=== PATIENT | male | born 1970 | race Caucasian/White ===

== ENCOUNTER → 2018-03-26 10:27 | Outpatient (CLI) | payer OTHER, SELFPAY ==
--- NOTE | 2018-03-26 | DI.MRI.S_ITS ---
PROCEDURE: MR CERVICAL SPINE WO CON INDICATIONS: Neck pain. Numbness in upper limbs TECHNIQUE: Noncontrast sagittal T1 spin echo and T2 fast spin echo, sagittal STIR, foraminal oblique sagittal T2 fast spin echo, and axial gradient echo or T2 fast spin echo through the cervical spine. COMPARISON: None. FINDINGS: Image quality: Excellent. Alignment and Curvature: Straightening of the normal cervical lordosis.. Bone Marrow: Marrow demonstrates normal overall signal. Spinal Cord: Visualized spinal cord has normal size and signal. No cerebellar tonsillar herniation. Paraspinous Soft Tissues: No paravertebral masses. Prevertebral soft tissues are normal in thickness. C2-C3: Normal appearance. C3-C4: Bilateral uncovertebral arthropathy and posterior intervening disc osteophyte complex, and mild bilateral facet disease. No definite canal stenosis. No foraminal narrowing. C4-C5: Bilateral uncovertebral arthropathy and posterior intervening disc osteophyte complex, which appears mild. No definite canal stenosis. Moderate right and no definite left foraminal narrowing. C5-C6: Bilateral uncovertebral arthropathy and posterior intervening disc osteophyte complex, and bilateral facet disease. Moderate right and mild left foraminal narrowing. C6-C7: Bilateral uncovertebral arthropathy and posterior intervening disc osteophyte complex, and bilateral facet disease. Minimal central canal narrowing. Severe right foraminal stenosis. Mild left foraminal narrowing. C7-T1: Normal appearance. IMPRESSION: Straightening of the normal cervical lordosis and multilevel cervical disc degeneration and facet arthropathy. Severe right C6-C7 foraminal stenosis. Moderate right C4-C5 and C5-C6 foraminal narrowing. Mild left C5-6 foraminal stenosis. Dictated by: Adonay Ayala M.D. on 03/26/2018 at 12:03 Approved by: Adonay Ayala M.D. on 03/26/2018 at 12:11
== END ==
PROVIDERS: PCP Physician Assistant; Visit Provider General Practice
DX: M50.31 Other cervical disc degeneration, high cervical region (principal); M47.812 Spondylosis without myelopathy or radiculopathy, cervical region; M48.02 Spinal stenosis, cervical region; M54.2 Cervicalgia; R20.0 Anesthesia of skin
CPT/HCPCS: 72141

== ENCOUNTER → 2018-06-05 18:39 | Outpatient (CLI) | payer OTHER, SELFPAY ==
--- NOTE | 2018-06-05 18:43 | DI.MRI.S_ITS ---
PROCEDURE: MR LUMBAR SPINE WO CON INDICATIONS: LUMBAR RADICULOPATHY TECHNIQUE: Noncontrast sagittal T1 spin echo and T2 fast echo, sagittal STIR, axial T1 and T2 fast spin echo through the lumbar spine. In cases with scoliosis, additional coronal T2 fast spin echo may be performed. COMPARISON: [facility], MR, MR LUMBAR SPINE WITHOUT CONTRAST, 05/05/2015, 10:19. [facility], CR, XR LUMBAR SPINE WITH OLBIQUES PLUS FLEXION EXTENSION, 04/02/2018, 11:03. FINDINGS: Image quality: Excellent. Alignment and Curvature: 5 lumbar type vertebral bodies are present by plain film. There is normal bony alignment. Bone Marrow: Marrow is of normal overall signal. No acute vertebral body compression fractures. Spinal Cord: Conus medullaris terminates at the L1-L2 disc space level. Visualized cord demonstrates normal signal and size. Paraspinous Soft Tissues: No paravertebral masses. L1-L2: Mild facet hypertrophy and ligamentum hypertrophy bilaterally. Mild epidural lipomatosis. No significant canal, nor foraminal stenosis. No change. L2-L3: Mild facet and ligamentum flavum hypertrophy. Mild epidural lipomatosis. Mild canal stenosis. Mild bilateral foraminal stenosis. No change. L3-L4: Mild facet hypertrophy and ligamentum hypertrophy. Mild epidural lipomatosis. Mild canal stenosis. Mild bilateral foraminal stenosis. No change. L4-L5: Mild diffuse disc bulge. Mild bilateral facet and ligamentum flavum hypertrophy. Mild canal stenosis. Mild bilateral foraminal stenosis. No change. L5-S1: Moderate disc loss and desiccation. Mild diffuse disc bulge with superimposed new/increased left paracentral disc extrusion. Mild bilateral facet and ligamentum flavum hypertrophy. There is mild canal stenosis and mild bilateral foraminal stenosis, which is increased. There is significantly increased impingement upon the left S1 nerve root within the lateral recess. IMPRESSION: 1. Multilevel degenerative disc and facet disease, as well as ligamentum flavum hypertrophy and epidural lipomatosis. 2. Mild multilevel canal and foraminal stenoses as described above. 3. Left S1 nerve root impingement at the L5-S1 disc space level as described above. Recommend correlation with clinical symptoms to ascertain relevance of this finding. Dictated by: Chani Gonzales M.D. on 06/08/2018 at 14:32 Approved by: Chani Gonzales M.D. on 06/08/2018 at 14:35
== END ==
PROVIDERS: PCP Physician Assistant; Visit Provider Physical Medicine & Rehabilitation
DX: M51.16 Intervertebral disc disorders with radiculopathy, lumbar region (principal); M51.17 Intervertebral disc disorders with radiculopathy, lumbosacral region; M48.061 Spinal stenosis, lumbar region without neurogenic claudication; M48.07 Spinal stenosis, lumbosacral region; E88.2 Lipomatosis, not elsewhere classified
CPT/HCPCS: 72148

== ENCOUNTER 2018-08-03 12:44 | Day surgery (SDC) | payer OTHER, SELFPAY ==
[2018-07-28 14:32] VITALS: BMI 39.3
[2018-08-03] VITALS (10 sets, daily range): BP systolic 113–135; BP diastolic 62–78; PULSE 67–97; RESP 10–16; TEMP 36.2–36.8; O2SAT 94–100; BMI 34.4
[2018-08-03] MEDS: LACTATED RINGERS 1,000 ML 42 ML IV (13:10)
--- NOTE | 2018-08-03 13:28 | SUR.PREOP ---
PT REPORTS HAS CHRONIC NUMBNESS AND TINGLING IN LEFT LEG
--- NOTE | 2018-08-03 14:00 | PM.PREOP ---
Pre-operative Note Interval Note History & Physical reviewed/Exam performed by Physician: Yes Changes to H&P: No
[2018-08-03] MEDS: CEFAZOLIN 2 GM/100 ML FROZ.PIGGY IV (14:27)
--- NOTE | 2018-08-03 14:58 | SUR.OPER ---
Prone on spine table, head in foam head support, padded chest and pelvic supports, gel pad at knees, lower legs supported by pillows; nipples, genitalia and toes free of pressure, arms secured on foam padded arm boards at <90 degrees abduction. Tape over blanket at thigh secured to table.
[2018-08-03] MEDS: BUPIVACAINE 0.25% W/ EPI VIAL 30 ML INJ (15:05)
[2018-08-03] MEDS: methylPREDNISolone acet DEPO 40 MG/ML VIAL IM (15:06)
--- NOTE | 2018-08-03 15:13 | DI.RAD.S_ITS ---
PROCEDURE: XR LUMBAR SPINE 2-3V INDICATIONS: L5-S1 MICRODISECTOMY TECHNIQUE: 2 intraoperative fluoroscopic views of the lumbar spine were acquired. COMPARISON: None. FINDINGS: Bones: Intraoperative fluoroscopic views of the lumbar spine demonstrate localization at L5-S1. IMPRESSION: Intraoperative fluoroscopic localization of L5-S1. Dictated by: Meagan Foley M.D. on 08/03/2018 at 15:52 Approved by: Meagan Foley M.D. on 08/03/2018 at 15:52
--- NOTE | 2018-08-03 15:48 | P.OP_ITS ---
Operative Date/Time/Diagnoses Date of procedure: 08/03/18 Time of procedure: 14:45 Pre-op diagnosis: 1. L5-S1 lumbar disc herniation 2. Lumbar spinal stenosis L5-S1 Post-op diagnosis: same Procedure & Clinicians Procedure: 1. L5-S1 left microdiscectomy 2. Utilization of microsurgical technique and operating microscope Same procedure as scheduled: Yes Indications: Patient has been having chronic back pain and worsening lumbar radiculopathy. Patient failed multiple conservative management with worsening pain weakness and numbness in her lower extremity. Patient has been having difficulty performing activity of daily living. After discussing risks benefits of treatment options, patient elected proceed with surgery. Surgeon: Sola Gill Weatherstrip Machine Operator: Shania Browne Click Yes if Unassisted: No Anesthesia Type: General Operative Notes Closure Type: primary Specimen(s): none sent Estimated Blood Loss (mL): 10 Blood products transfused: none Procedure in detail: Patient was seen in the preoperative area. Risks and benefits of the surgery was discussed with the patient. Informed consent was obtained from the patient and placed in the chart. Surgical site was marked. Patient was taken to the operative room. General anesthesia was administered. Prophylactic antibiotic was given to the patient less than 30 min before the incision was made. Patient was placed into a prone position on the Herbert table. Patient's back was then prepped and draped in the sterile fashion. Time- out was performed at this time. Using AP and lateral C-arm imaging the interval between L5-S1 was identified and marked on patient's back. A 1 inch incision 1 in from midline was made on the left side. The fascia was incised in line with skin incision. Globus MARS retractors was placed inside the incision and docked onto the L5 lamina. Using microsurgical technique and operating microscope, a L5 laminotomy was performed using a Kerrison rongeur. Liagamentum flavum was resected at the site of the laminotomy. The disc space at L5-S1 was identified. Microdiscectomy was performed by incising the annulus with #11 blade. Microcurettes and pituitary was used to removed herniated disc fragments of disc from the epidural space. The disc fragment was found to be partially calcified indicating a chronic portion to the herniated disc. There is also a new herniation was soft and extruded immediately after the annulus was incised. Both the new and calcified older portion of the piece herniation was removed by using a Kerrison rongeur and pituitary. After the microdiskectomy was completed, the area medial lateral superior and inferior to the area of the microdiskectomy was inspected and explored using a micro curette. No other impinging structure was identified. The wound was then irrigated with sterile normal saline. 40 mg Depo-Medrol was placed into the epidural space. The deep fascia was closed with 1-0 Vicryl. The subcutaneous tissue was closed with 2-0 Vicryl. The skin was closed with 4-0 Monocryl. Patient tolerated the procedure well. There were no complications. Patient was transferred recovery room in stable condition. Complications: none Condition: stable Disposition: same day surgery Plan for aftercare: Discharge home
[2018-08-03] MEDS: fentaNYL 100 MCG/2 ML INJ 50 MCG IV ×2 (16:13→16:27)
[2018-08-03] MEDS: OXYCODONE/ACETAMINOPHEN 5/325 TABLET 1 TAB PO (16:19)
--- NOTE | 2018-08-03 16:22 | SUR.PHASEI ---
equal and strong bilateral leg strengths. sensation normal for patient, feet pink and warm
== END 2018-08-03 17:22 | disposition home or self-care (01) ==
PROVIDERS: PCP Physician Assistant; Visit Provider Orthopaedic Surgery Orthopaedic Surgery of the Spine
PROC: (CPT 63030; principal; 2018-08-03 14:45)
DX: M51.16 Intervertebral disc disorders with radiculopathy, lumbar region (principal); I10 Essential (primary) hypertension; F17.210 Nicotine dependence, cigarettes, uncomplicated
CPT/HCPCS: 63030; 72100; 76000; J0690; J1030; J2250; J2405; J2704; J3010

== ENCOUNTER 2018-08-22 18:41 | Emergency (ER) | payer OTHER, SELFPAY ==
[2018-08-22 19:09] VITALS: BP 130/80; PULSE 119; RESP 22; TEMP 38.9; O2SAT 98; BMI 34.4
--- NOTE | 2018-08-22 19:17 | ED.FEVER ---
HPI - Fever <Alexandra Echols PA-C - Last Filed: 08/22/18 21:51> General Chief Complaint: Fever Stated Complaint: FEVER Time Seen by Provider: 08/22/18 19:08 Source: patient Mode of arrival: ambulatory Limitations: no limitations History of Present Illness HPI Narrative: This 48-year-old male comes to ED secondary to fever, generalized weakness, fatigue, body aches started yesterday. He also has had some dry cough with this. He denies sore throat or earache, states he has mild runny nose with clear drainage. He denies shortness of breath or chest pain. He has not had any GI symptoms, normal BM yesterday. He has not had any new rash. No specific exposures known. He has not had flu vaccine this season but up-to-date on other vaccines. Related Data Home Medications Medication Instructions Recorded Confirmed hydrochlorothiazide 12.5 mg PO DAILY 07/28/18 08/03/18 telmisartan [Micardis] 40 mg PO DAILY 07/28/18 08/03/18 Previous Rx's Medication Instructions Recorded oxycodone-acetaminophen [Percocet] 1 tab PO Q4-6H PRN #30 tab 08/03/18 oseltamivir [Tamiflu] 75 mg PO BID 5 Days #9 cap 08/22/18 Allergies Allergy/AdvReac Type Severity Reaction Status Date / Time No Known Drug Allergies Allergy Verified 08/22/18 19:13 Review of Systems <Alexandra Echols PA-C - Last Filed: 08/22/18 21:51> Review of Systems ROS Unobtainable: All systems reviewed & are unremarkable except as noted in HPI and below PFSH <Alexandra Echols PA-C - Last Filed: 08/22/18 21:51> Medical History DJD (degenerative joint disease) (Chronic) Hypertension (Chronic) Spinal stenosis (Chronic) Surgical History H/O microdiscectomy (Resolved) Hx of tonsillectomy (Resolved) S/P epidural steroid injection (Resolved) Social History household members: spouse and children Smoking Status: Former smoker Social History household members: spouse and children Smoking Status: Former smoker Exam <LETICIA Cortes Last Filed: 08/22/18 21:51> Narrative Exam Narrative: GENERAL APPEARANCE: Patient sitting comfortably, in no distress. HEAD: No sinus TTP. EYES: PERRL, EOMI. EARS: Normal auditory canals, TMS intact with normal light reflexes. ORAL CAVITY: Normal oropharynx. THROAT: Clear. NECK/THYROID: Neck supple, full range of motion, no cervical lymphadenopathy. LUNGS: Clear to auscultation bilaterally, Occasional hoarse cough on exam. HEART: RRR without murmur, nl S1, S2, no S3 or S4. DERMATOLOGIC: No exanthem Initial Vital Signs Initial Vital Signs: Vital Signs Temperature 102.0 F H 08/22/18 19:09 Pulse Rate 119 H 08/22/18 19:09 Respiratory Rate 22 08/22/18 19:09 Blood Pressure 130/80 08/22/18 19:09 Pulse Oximetry 98 08/22/18 19:09 <Fermín Schmitt DO - Last Filed: 08/23/18 03:34> Initial Vital Signs Initial Vital Signs: Vital Signs Temperature 102.0 F H 08/22/18 19:09 Pulse Rate 119 H 08/22/18 19:09 Respiratory Rate 22 08/22/18 19:09 Blood Pressure 130/80 08/22/18 19:09 Pulse Oximetry 98 08/22/18 19:09 Course <Alexandra Echols PA-C - Last Filed: 08/22/18 21:51> Orders Ordered: ED Orders 08/22/18 20:00 Influenza A and B by PCR Rapid Stat Discontinued Medications Ibuprofen (Advil) 800 mg PO NOW ONE Stop: 08/22/18 19:17 Last Admin: 08/22/18 19:34 Dose: 800 mg Oseltamivir Phosphate (Tamiflu) 75 mg PO NOW ONE Stop: 08/22/18 20:54 Last Admin: 08/22/18 21:14 Dose: 75 mg Vital Signs - 8 hr 08/22/18 21:19 Temperature 100.8 F H Pulse Rate 109 H Respiratory Rate 18 Pulse Oximetry 95 <Fermín Schmitt DO - Last Filed: 08/23/18 03:34> Orders Ordered: ED Orders 08/22/18 20:00 Influenza A and B by PCR Rapid Stat Discontinued Medications Ibuprofen (Advil) 800 mg PO NOW ONE Stop: 08/22/18 19:17 Last Admin: 08/22/18 19:34 Dose: 800 mg Oseltamivir Phosphate (Tamiflu) 75 mg PO NOW ONE Stop: 08/22/18 20:54 Last Admin: 08/22/18 21:14 Dose: 75 mg Vital Signs - 8 hr 08/22/18 21:19 Temperature 100.8 F H Pulse Rate 109 H Respiratory Rate 18 Pulse Oximetry 95 MDM - Fever <Alexandra Echols PA-C - Last Filed: 08/22/18 21:51> Lab Data Lab Results 08/22/18 Range/Units 20:00 Influenza A & B (PCR) Positive, type a A (Negative) <Fermín Schmitt DO - Last Filed: 08/23/18 03:34> Lab Data Lab Results 08/22/18 Range/Units 20:00 Influenza A & B (PCR) Positive, type a A (Negative) Discharge Plan Departure Patient Disposition: Home Clinical Impression: Influenza Discharge Date/Time: 08/22/18 21:20 Interventions: ED Discharge Assessment Last Done: 08/22/18 21:19 Instructions: DI for Influenza -- Adult Activity Restrictions/Additional Instructions: please return as we talked about if you have any acutely worsening symptoms, i.e. high fever not responding to nagv-aqh-afoflsb medicines, acute respiratory difficulty etc. Otherwise, please rest at home. Take 800 mg (for pivt-ush-lidyjsb tablets) of ibuprofen every 8 hr to help with fever and aches. You can also add Tylenol to that every 4-6 hours in between as needed. You have been given the 1st dose of Tamiflu this evening. Please picker and sorter load and unload the rest of your prescription 1st thing tomorrow when the pharmacy opens and continue taking it for a total of 10 doses. See your PCP if you are not starting to feel better in the next week Prescriptions: New oseltamivir [Tamiflu] 75 mg capsule 75 mg PO BID 5 Days Qty: 9 RF: 0 No Action telmisartan [Micardis] 40 mg Tablet 40 mg PO DAILY RF: 0 hydrochlorothiazide 12.5 mg Tablet 12.5 mg PO DAILY RF: 0 oxycodone-acetaminophen [Percocet] 5-325 mg tablet 1 tab PO Q4-6H PRN (Reason: pain) Qty: 30 RF: 0 Referrals: John Seals PA-C [Primary Care Provider] - <Fermín Schmitt DO - Last Filed: 08/23/18 03:34> Cosign ED Attending Cosignature Attestation: I was immediately available in the department for consultation. Documentation has been reviewed. I agree with assessment and plan.
--- NOTE | 2018-08-22 19:26 | ED_ITS ---
HPI - Fever <Alexandra Echols PA-C - Last Filed: 08/22/18 21:51> General Chief Complaint: Fever Stated Complaint: FEVER Time Seen by Provider: 08/22/18 19:08 Source: patient Mode of arrival: ambulatory Limitations: no limitations History of Present Illness HPI Narrative: This 48-year-old male comes to ED secondary to fever, generalized weakness, fatigue, body aches started yesterday. He also has had some dry cough with this. He denies sore throat or earache, states he has mild runny nose with clear drainage. He denies shortness of breath or chest pain. He has not had any GI symptoms, normal BM yesterday. He has not had any new rash. No specific exposures known. He has not had flu vaccine this season but up-to-date on other vaccines. Related Data Home Medications Medication Instructions Recorded Confirmed hydrochlorothiazide 12.5 mg PO DAILY 07/28/18 08/03/18 telmisartan [Micardis] 40 mg PO DAILY 07/28/18 08/03/18 Previous Rx's Medication Instructions Recorded oxycodone-acetaminophen [Percocet] 1 tab PO Q4-6H PRN #30 tab 08/03/18 oseltamivir [Tamiflu] 75 mg PO BID 5 Days #9 cap 08/22/18 Allergies Allergy/AdvReac Type Severity Reaction Status Date / Time No Known Drug Allergies Allergy Verified 08/22/18 19:13 Review of Systems <Alexandra Echols PA-C - Last Filed: 08/22/18 21:51> Review of Systems ROS Unobtainable: All systems reviewed & are unremarkable except as noted in HPI and below PFSH <Alexandra Echols PA-C - Last Filed: 08/22/18 21:51> Medical History DJD (degenerative joint disease) (Chronic) Hypertension (Chronic) Spinal stenosis (Chronic) Surgical History H/O microdiscectomy (Resolved) Hx of tonsillectomy (Resolved) S/P epidural steroid injection (Resolved) Social History household members: spouse and children Smoking Status: Former smoker Social History household members: spouse and children Smoking Status: Former smoker Exam <LETICIA Cortes Last Filed: 08/22/18 21:51> Narrative Exam Narrative: GENERAL APPEARANCE: Patient sitting comfortably, in no distress. HEAD: No sinus TTP. EYES: PERRL, EOMI. EARS: Normal auditory canals, TMS intact with normal light reflexes. ORAL CAVITY: Normal oropharynx. THROAT: Clear. NECK/THYROID: Neck supple, full range of motion, no cervical lymphadenopathy. LUNGS: Clear to auscultation bilaterally, Occasional hoarse cough on exam. HEART: RRR without murmur, nl S1, S2, no S3 or S4. DERMATOLOGIC: No exanthem Initial Vital Signs Initial Vital Signs: Vital Signs Temperature 102.0 F H 08/22/18 19:09 Pulse Rate 119 H 08/22/18 19:09 Respiratory Rate 22 08/22/18 19:09 Blood Pressure 130/80 08/22/18 19:09 Pulse Oximetry 98 08/22/18 19:09 <Fermín Schmitt DO - Last Filed: 08/23/18 03:34> Initial Vital Signs Initial Vital Signs: Vital Signs Temperature 102.0 F H 08/22/18 19:09 Pulse Rate 119 H 08/22/18 19:09 Respiratory Rate 22 08/22/18 19:09 Blood Pressure 130/80 08/22/18 19:09 Pulse Oximetry 98 08/22/18 19:09 Course <Alexandra Echols PA-C - Last Filed: 08/22/18 21:51> Orders Ordered: ED Orders 08/22/18 20:00 Influenza A and B by PCR Rapid Stat Discontinued Medications Ibuprofen (Advil) 800 mg PO NOW ONE Stop: 08/22/18 19:17 Last Admin: 08/22/18 19:34 Dose: 800 mg Oseltamivir Phosphate (Tamiflu) 75 mg PO NOW ONE Stop: 08/22/18 20:54 Last Admin: 08/22/18 21:14 Dose: 75 mg Vital Signs - 8 hr 08/22/18 21:19 Temperature 100.8 F H Pulse Rate 109 H Respiratory Rate 18 Pulse Oximetry 95 <Fermín Schmitt DO - Last Filed: 08/23/18 03:34> Orders Ordered: ED Orders 08/22/18 20:00 Influenza A and B by PCR Rapid Stat Discontinued Medications Ibuprofen (Advil) 800 mg PO NOW ONE Stop: 08/22/18 19:17 Last Admin: 08/22/18 19:34 Dose: 800 mg Oseltamivir Phosphate (Tamiflu) 75 mg PO NOW ONE Stop: 08/22/18 20:54 Last Admin: 08/22/18 21:14 Dose: 75 mg Vital Signs - 8 hr 08/22/18 21:19 Temperature 100.8 F H Pulse Rate 109 H Respiratory Rate 18 Pulse Oximetry 95 MDM - Fever <Alexandra Echols PA-C - Last Filed: 08/22/18 21:51> Lab Data Lab Results 08/22/18 Range/Units 20:00 Influenza A & B (PCR) Positive, type a A (Negative) <Fermín Schmitt DO - Last Filed: 08/23/18 03:34> Lab Data Lab Results 08/22/18 Range/Units 20:00 Influenza A & B (PCR) Positive, type a A (Negative) Discharge Plan Departure Patient Disposition: Home Clinical Impression: Influenza Discharge Date/Time: 08/22/18 21:20 Interventions: ED Discharge Assessment Last Done: 08/22/18 21:19 Instructions: DI for Influenza -- Adult Activity Restrictions/Additional Instructions: please return as we talked about if you have any acutely worsening symptoms, i.e. high fever not responding to ctsi-lvk-mtqdygk medicines, acute respiratory difficulty etc. Otherwise, please rest at home. Take 800 mg (for dozj-rwu-okbbcez tablets) of ibuprofen every 8 hr to help with fever and aches. You can also add Tylenol to that every 4-6 hours in between as needed. You h ave been given the 1st dose of Tamiflu this evening. Please picking table worker the rest of your prescription 1st thing tomorrow when the pharmacy opens and continue taking it for a total of 10 doses. See your PCP if you are not starting to feel better in the next week Prescriptions: New oseltamivir [Tamiflu] 75 mg capsule 75 mg PO BID 5 Days Qty: 9 RF: 0 No Action telmisartan [Micardis] 40 mg Tablet 40 mg PO DAILY RF: 0 hydrochlorothiazide 12.5 mg Tablet 12.5 mg PO DAILY RF: 0 oxycodone-acetaminophen [Percocet] 5-325 mg tablet 1 tab PO Q4-6H PRN (Reason: pain) Qty: 30 RF: 0 Referrals: John Seals PA-C [Primary Care Provider] - <Fermín Schmitt DO - Last Filed: 08/23/18 03:34> Cosign ED Attending Ezioature Attestation: I was immediately available in the department for consultation. Documentation has been reviewed. I agree with assessment and plan.
[2018-08-22] MEDS: IBUPROFEN 400 MG TABLET 800 MG PO (19:34)
[2018-08-22] MEDS: OSELTAMIVIR 75 MG CAPSULE PO (21:14)
[2018-08-22 21:19] VITALS: PULSE 109; RESP 18; TEMP 38.2; O2SAT 95
== END 2018-08-22 21:20 | disposition home or self-care (01) ==
PROVIDERS: Emergency Provider Internal Medicine; Family Provider Physician Assistant; PCP Physician Assistant
DX: J11.1 Influenza due to unidentified influenza virus with other respiratory manifestations (principal)
CPT/HCPCS: 87400; 99282; 99283

== ENCOUNTER 2023-09-17 08:12 | Day surgery (SDC) | payer OTHER, SELFPAY ==
[2023-09-17] VITALS (10 sets, daily range): BP systolic 92–143; BP diastolic 45–78; PULSE 54–91; RESP 12–21; TEMP 36.2–36.6; O2SAT 91–100
--- NOTE | 2023-09-17 | PATH_ITS ---
[facility] Accession Number: [id number] No. of containers..03 Tissue . 01 Material submitted: . PART A: duodenum - DUODENAL BIOPSY PART B: colon - RANDOM COLON PART C: colon - COLON, POLYP @ 20 CM . 01 Clinical history: . A: RULE OUT CELIAC DISEASE . 01 Diagnosis: Part A: DUODENAL BIOPSY: Duodenal mucosa with no diagnostic alterations. No active inflammation and no evidence of celiac disease. . Part B: RANDOM COLON: Colonic mucosa with no diagnostic alterations. No active inflammation, granulomas, dysplasia, or malignancy identified. No evidence of colitis. . Part C: POLYP @ 20 CM: Part C: COLON, POLYP @ 20 CM: Hyperplastic polyp. STO 09/19/2023 1723 Local . 01 Electronically signed: . Candido Capps MD, Pathologist NPI- [id number] . 01 Gross description: . Part A: DUODENAL BIOPSY: Received in formalin is 1 fragment(s) of kam, soft tissue measuring 0.3 x 0.3 x 0.2 cm submitted entirely in 1 cassette(s) . Part B: RANDOM COLON: Received in formalin are 4 fragment(s) of kam, soft tissue measuring 0.1 x 0.1 x 0.1 cm to 0.4 x 0.2 x 0.2 cm submitted entirely in 1 cassette(s) . Part C: POLYP @ 20 CM: Received in formalin is 1 fragment(s) of akm, soft tissue measuring 0.2 x 0.2 x 0.2 cm submitted entirely in 1 cassette(s) /SIMA 09/19/2023 1723 Local . 01 Pathologist provided ICD-10: K63.5 . 01 CPT . 521642, 324485, 203767 Specimen Comment: A courtesy copy of this report has been sent to [phone] Performed at: 01 [facility] [address] [facility], [place], [place] [id number] MD Candido Capps MD Phone: [phone]
--- NOTE | 2023-09-17 08:29 | PM.HP.1 ---
History of Present Illness History of Present Illness Date Patient Seen: 09/17/23 Chief complaint: SDC Narrative: Abnormal bowel movements, rectal bleeding, GE reflux was cervical dysphagia. [facility] Medical History (Updated 07/16/23 @ 07:53 by Leah oBo MD) Encounter for sterilization Consultation for sterilization Kidney disease DJD (degenerative joint disease) Hypertension Spinal stenosis Surgical History History of liver biopsy History of back surgery H/O microdiscectomy S/P epidural steroid injection Hx of tonsillectomy Family History Aunt Cancer Grandmother Stroke Hypertension Mother Kidney stones Social History marital status: number of children: 2 household members: spouse and children Previous occupational history: [employer] Smoking Status: Former smoker alcohol intake: current caffeine: Yes Meds Home Medications and Allergies Home Medications Medication Instructions Recorded Confirmed Type hydrochlorothiazide 12.5 mg tablet 12.5 mg PO DAILY 07/28/18 09/17/23 History telmisartan 40 mg tablet (Micardis) 40 mg PO DAILY 07/28/18 09/17/23 History Allergies Allergy/AdvReac Type Severity Reaction Status Date / Time No Known Drug Allergies Allergy Verified 09/17/23 08:26 Exam Narrative Exam Narrative: Oropharynx free of lesions Chest clear to auscultation percussion Cardiac exam reveals no S3 or murmur Assessment & Plan Assessment & Plan narrative: Intermittent rectal bleeding probably from a perirectal source rule out inflammatory bowel disease Abnormal bowel movements probably for food intolerance is rule out celiac rule out microscopic colitis EGD and colonoscopy both with biopsies was performed. Risks, benefits, alternatives have been explained.
--- NOTE | 2023-09-17 08:30 | P.OP.EGD&C_ITS ---
Operative Date/Time/Diagnoses Date of procedure: 09/17/23 Pre-op diagnosis: See indication and findings Procedure & Clinicians Study performed: EGD and colonoscopy Indications: Change in bowel movements rectal bleeding and cervical dysphagia with GE reflux Surgeon: Sachi Rao Procedure Notes Procedure in detail: After informed consent was obtained the patient was placed in left lateral decubitus position. The video upper scope was placed into the oropharynx and with the patient's help swelled into the esophagus. The esophagus stomach and duodenum were carefully examined. On withdrawal, retroflexed view the GE junction was performed. The scope was removed. The patient tolerated procedure well Patient was then turned and the colonoscope substituted. This introduced the rectum and slowly advanced to the cecum. On slow withdrawal mucosa was carefully examined. The scope was removed. The patient tolerated procedure well. Blood loss none Complications none Sedation mac Findings EGD 1. Normal esophageal mucosa 2. Wide-open Schatzki's ring at the GE junction without any evidence of Bar rett's esophagus or esophagitis. 3. Small sliding hiatal hernia 4. Normal stomach 5. Normal duodenal bulb and sweep biopsies taken to rule out celiac Colonoscopy 1. Normal colonoscopy to cecum random biopsies taken to rule out microscopic colitis 2. Unable to intubate terminal ileum 3. 4 mm polyp at 20 cm biopsied and completely removed Will follow-up on the polyp results and have appropriate recall status. He also reports back to him regarding his other biopsies all of which I expect to be normal.
[2023-09-17] MEDS: LACTATED RINGERS 1,000 ML 100 ML IV (08:44)
== END 2023-09-17 11:05 | disposition home or self-care (01) ==
PROVIDERS: Referring Provider Internal Medicine Gastroenterology; Visit Provider Internal Medicine Gastroenterology
PROC: 0DJ08ZZ Inspection of Upper Intestinal Tract, Via Natural or Artificial Opening Endoscopic (ICD-10-PCS; CPT 45380; principal; 2023-09-17 09:00)
PROC: 0DJD8ZZ Inspection of Lower Intestinal Tract, Via Natural or Artificial Opening Endoscopic (ICD-10-PCS; CPT 45378; 2023-09-17 09:00)
DX: K62.5 Hemorrhage of anus and rectum (principal); R19.4 Change in bowel habit; R13.10 Dysphagia, unspecified; K21.9 Gastro-esophageal reflux disease without esophagitis; K22.2 Esophageal obstruction; K44.9 Diaphragmatic hernia without obstruction or gangrene; K63.5 Polyp of colon
CPT/HCPCS: 45380; 43239; J2704